=== PATIENT | male | born 1990 | race Caucasian/White ===

== ENCOUNTER 2022-11-10 17:53 | Emergency (ER) | payer OTHER, SELFPAY ==
[2022-11-10 17:59] VITALS: BP 121/93; BP 128/86; PULSE 111; PULSE 112; RESP 14; TEMP 36.8; O2SAT 82; O2SAT 95; BMI 31.5
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
--- NOTE | 2022-11-10 18:23 | PC.NURSE ---
pt unable to maintain 02 above 90 on 2l nc. ranging from 70-90, switched to oxymask at 4L. pt unable to stay awake. constant desat and unresponsiveness . MD Stone order for nasal narcan. administered to L nasal at this time. RR remains under 10
[2022-11-10] MEDS: Naloxone HCl Nasal 4 MG SPRAY NOSTRILALT (18:34)
--- OUTSIDE RECORDS SUMMARY | 2022-11-10 18:55 | XMS_ITS | Continuity of Care Document ---
Author Name Unknown Organization [facility] Address [address] [place] [address]- Care Team Providers Care Plasterer Helper Name Role Phone Marleny PARR, Gunnar Lopez Primary Care Physician Encounter [facility] Date(s): 05/11/21 - 06/10/21 [facility] [address] [place] [address]- Allergies, Adverse Reactions, Alerts No Known Allergies Immunizations Given and Recorded Vaccine Date Status Refusal Reason SARS-CoV-2 (COVID-19) mRNA BNT-162b2 vac 08/02/20 Recorded SARS-CoV-2 (COVID-19) mRNA BNT-162b2 vac 07/08/20 Recorded tetanus/diphtheria/pertussis, acel(Tdap) 05/24/20 Given Medications gabapentin 800 mg oral tablet 1 tablet = 800 mg, By Mouth, 4 times a day, Maintenance, 05/03/21 13:54:00 EST, Tablet, last [id number]/24 per [facility] Start Date: 05/03/21 Status: Ordered physical therapy for ankle fracture physical therapy for ankle fracture, See Instructions, # 1 each, Refills 0, Tot. Refills 0, Maintenance, physical therapy for ankle fracture, 05/10/21 16:25:00 EST, Supply Start Date: 05/10/21 Status: Ordered Protonix 40 mg oral delayed release tablet = 40 mg, By Mouth, Daily, 0 Refills, Maintenance, 05/10/21 17:05:00 EST, EC Tablet Start Date: 05/10/21 Status: Ordered rivaroxaban 10 mg oral tablet 1 tablet = 10 mg, By Mouth, Daily, # 12 tablet, 0 Refills, Maintenance, 05/07/21 17:30:00 EST, Tablet, Partial fill upon patient request if the prescription is for a schedule II opioid drug. Start Date: 05/07/21 Status: Ordered Walker See Instructions, # 1 each, Maintenance, for ankle fracture., 05/10/21 16:26:00 EST, for ankle fracture, Supply Start Date: 05/10/21 Status: Ordered Walker See Instructions, # 1 each, Maintenance, Non-weight bearing LLE, 05/06/21 15:26:00 EST, Supply Start Date: 05/06/21 Status: Ordered Problem List Condition Effective Dates Status Health Status Inform ant Borderline personality disorder(Confirmed) Active Hx of major depression(Confirmed) 1 Active Mood disorder(Confirmed) Active Nicotine dependence, uncomplicated(Confirmed) Active Obese class I(Confirmed) Active Opioid use disorder, severe, in early remission, dependence(Confirmed) Active 1hospitalized 2014 in a dual dx program (heroin dependence also) Social History Social History Type Response Tobacco Use: 2 1/2 - 3 PPD. Interested in cessation: No. No, Other: GIVES HIM NIGHTMARES. Sex Medical Equipment Implanted Date:05/04/21Target Site:Ankle Left Description Quantity MRI [employer] Model 5223-7392 9 HOLE LEFT LATERAL PLATE ACUMED 1 ACUMED Unknown SHYANNE:No Information Assigning Authority: FDA SCREW HEXALOBE LCKG 3.5X12 - ACUM (300234) 3 Acumed Unknown SHYANNE:No Information Assigning Authority: FDA SCREW HEXALOBE NONLCKG 3.5X12 - ACUM (300257) 5 Acumed Unknown SHYANNE:No Information Assigning Authority: FDA SCREW HEXALOBE NONLCKG 3.5X12 - ACUM (30-0257) 3 Acumed Unknown SHYANNE:No Information Assigning Authority: FDA SCREW HEXALOBE NONLCKG 3.5X14 - ACUM (30-0258) 2 Acumed Unknown SHYANNE:No Information Assigning Authority: FDA SCREW HEXALOBE NONLCKG 3.5X16 - ACUM (30-0259) 2 Acumed Unknown SHYANNE:No Information Assigning Authority: FDA 30-0326 screws 2.7x12mm locking Acumed 3 30-0326 screws 2.7x12mm locking Acumed Unknown SHYANNE:No Information Assigning Authority: FDA Implanted Date:05/04/21Target Site:Leg Left Description Quantity MRI [employer] Model 7561-1036S T2 TIBIAL NAIL LAURA [address] [place] Unknown SHYANNE:No Information Assigning Authority: FDA 2360-5050S SCREW LAURA 1 LAURA Unknown SHYANNE:No Information Assigning Authority: [facility] 2360-5060S SCREW LAURA 1 LAURA Unknown SHYANNE:No Information Assigning Authority: FDA Implanted Date:05/04/21Target Site:Leg Lower Description Quantity MRI Company Model 2360-5045S SCREW LAURA 1 236 0-5045S SCREW LAURA Unknown SHYANNE:No Information Assigning Authority: [facility] 2341-0005S END CAP LAURA 1 2 341-0005S END CAP LAURA Unknown SHYANNE:No Information Assigning Authority: [facility] 2360-5040S SCREW LAURA 1 LAURA Unknown SHYANNE:No Information Assigning Authority: [facility]
--- OUTSIDE RECORDS SUMMARY | 2022-11-10 18:55 | XMS_ITS | Continuity of Care Document ---
Author Name Unknown Organization [facility] Address [address] [place] [address]- Care Team Providers Care Exploration Engineer Name Role Phone Marleny PARR, Gunnar Lopez Primary Care Physician [phone] Encounter [facility] Date(s): 05/02/21 - 05/06/[address] [address]- Discharge Disposition: A-D/C AMA Attending Physician: Lyric Hanks MD Admitting Physician: Elizabeth Delgado MD Referring Physician: Harjinder Ferrari MD Allergies, Adverse Reactions, Alerts No Known Allergies Immunizations Given and Recorded Vaccine Date Status Refusal Reason SARS-CoV-2 (COVID-19) mRNA BNT-162b2 vac 08/02/20 Recorded SARS-CoV-2 (COVID-19) mRNA BNT-162b2 vac 07/08/20 Recorded tetanus/diphtheria/pertussis, acel(Tdap) 05/24/20 Given Medications gabapentin 400 mg oral capsule 800 mg, Capsule, By Mouth, 05/06/21 15:00:00 EST Start Date: 05/06/21 Stop Date: 05/06/21 Status: Completed gabapentin 800 mg oral tablet 1 tablet = 800 mg, By Mouth, 4 times a day, Maintenance, 05/03/21 13:54:00 EST, Tablet, last /24 per [facility] Start Date: 05/03/21 Status: Ordered HYDROmorphone Inj 2 mg, Injection, IV Push Slowly, Every 2 hours, PRN for Pain , Moderate, Routine, 05/04/21 8:55:00 EST Start Date: 05/04/21 Stop Date: 05/07/21 Status: Discontinued oxyCODONE 10 mg oral tablet 1 tablet = 10 mg, By Mouth, Every 4 hours, PRN as needed for pain, # 6 tablet, 0 Refills, Acute 05/08/21 0:01:00 EST, 05/06/21 14:54:00 EST, Tablet, [facility], Partial fill upon patient request if the prescription is for a schedule II... Start Date: 05/06/21 Stop Date: 05/08/21 Status: Ordered rivaroxaban 10 mg oral tablet 1 tablet = 10 mg, By Mouth, Daily at supper, # 7 tablet, 0 Refills, Maintenance, 05/07/21 9:00:00 EST, Tablet, [facility], 183, cm, 05/06/21 9:20:00 EST, Height, 100, kg, 05/03/21 0:26:00 EST, Dry Weight Start Date: 05/07/21 Status: Ordered Walker See [...] a dual dx program (heroin dependence also) Results Radiology Reports * Exam Date Time Procedure Performing Provider Status 05/02/21 7:44 PM Ankle Min 3 Views Left Mao Coughlin; Ana Rosa (Verified) Notes: (Ankle Min 3 Views Left) Reason For Exam: Pain RESULT: Ankle Min 3 Views Left Left lower leg 2 views and left ankle 2 views dated May 02, 2021. HISTORY: Pain. FINDINGS: This examination shows an obliquely oriented spiral fracture of the distal diaphysis of the tibia. The distal fracture fragment is displaced laterally approximately 40% of the shaft width. There is an obliquely oriented slightly spiral fracture of the distal fibular diaphysis at the diaphyseal metaphyseal junction. There is mild lateral displacement of a proximally 10% of the shaft width. No radiopaque foreign body or soft tissue gas is noted. IMPRESSION: Fractures of the distal tibia and fibula as described above. Examination [id number] and [id number]. Thank you for allowing me to participate in the care of this patient. WSN: [id number] Ordering Physician: Harjinder Ferrari Dictated By: London Nayak MD Dictated Date/Time: 05/02/21 7:48 pm Reviewed By: London Nayak MD Signed By: London Nayak MD Signed Date/Time: 05/02/21 7:48 pm Transcribed By: ANA MARIA Transcribed Date/Time: 05/02/21 7:48 pm * Exam Date Time Procedure Performing Provider Status 05/02/21 7:44 PM Tibia/Fibula 2 Views Left Ced , N icole L; Auth (Verified) Notes: (Tibia/Fibula 2 Views Left) Reason For Exam: Pain RESULT: Tibia/Fibula 2 Views Left Left lower leg 2 views and left ankle 2 views dated May 02, 2021. HISTORY: Pain. FINDINGS: This examination shows an obliquely oriented spiral fracture of the distal diaphysis of the tibia. The distal fracture fragment is displaced laterally approximately 40% of the shaft width. There is an obliquely oriented slightly spiral fracture of the distal fibular diaphysis at the diaphyseal metaphyseal junction. There is mild lateral displacement of a proximally 10% of the shaft width. No radiopaque foreign body or soft tissue gas is noted. IMPRESSION: Fractures of the distal tibia and fibula as described above. Examination [id number] and [id number]. Thank you for allowing me to participate in the care of this patient. WSN: [id number] Ordering Physician: Harjinder Ferrari Dictated By: London Nayak MD Dictated Date/Time: 05/02/21 7:48 pm Reviewed By: London Nayak MD Signed By: London Nayak MD Signed Date/Time: 05/02/21 7:48 pm Transcribed By: ANA MARIA Transcribed Date/Time: 05/02/21 7:48 pm Vital Signs Most recent to oldest [Reference Range]: 1 2 3 Height 183 cm (05/06/21 4:32 PM) 183 cm (05/06/21 8:59 AM) 183 cm (05/05/21 6:48 PM) Weight 103.1 kg (05/04/21 4:25 PM) 103.1 kg (05/03/21 12:05 AM) 100 kg (05/02/21 10:36 PM) Oxygen Saturation [94-100 %] 95 % (05/06/21 4:32 PM) 99 % (05/06/21 8:59 AM) 99 % (05/06/21 5:00 AM) Pulse Rate [55-90 bpm] 80 bpm (05/06/21 4:32 PM) 78 bpm (05/06/21 8:59 AM) 73 bpm (05/06/21 5:00 AM) Body Mass Index [18.5-24.99] 30.79 *>HHI* (05/04/21 4:25 PM) 30.79 *>HHI* (05/03/21 12:05 AM) 29.86 *H* (05/02/21 10:36 PM) Blood Pressure [90-138/55-84 mm Hg] 130/85mm Hg (05/06/21 4:32 PM) 134/81mm Hg (05/06/21 8:59 AM) 119/77mm Hg (05/06/21 5:00 AM) Respiratory Rate [16-30 br/min] 17 br/min (05/06/21 4:32 PM) 16 br/min (05/06/21 3:15 PM) 18 br/min (05/06/21 2:45 PM) Temperature [96.8-100.4 DegF] 97.6 DegF (05/06/21 4:32 PM) 98.1 DegF (05/06/21 8:59 AM) 98.6 DegF (05/06/21 5:00 AM) Liters per Minute 0 L/min (05/06/21 5:00 AM) 0 L/min (05/06/21 12:00 AM) 0 L/min (05/05/21 8:00 PM) Mode of Delivery (Oxygen) Room air (05/06/21 4:32 PM) Room air (05/06/21 8:59 AM) Room air (05/06/21 5:00 AM) Blood pressure sites Arm, left (05/06/21 8:59 AM) Arm, right (05/05/21 6:48 PM) Arm, right (05/05/21 2:51 PM) Temperature Route Oral (05/06/21 4:32 PM) Oral (05/06/21 8:59 AM) Oral (05/06/21 5:00 AM) Dry Weight 100 kg (05/03/21 12:05 AM) 100 kg (05/02/21 10:36 PM) 100 kg (05/02/21 8:18 PM) Weight Obtained Via Bed scale (05/03/21 12:05 AM) Dry Weight Obtained Via Patient/family s tated (05/03/21 12:05 AM) Medical Equipment Implanted Date:05/04/21Target Site:Ankle Left Description Quantity MRI [employer] Model 1969-4925 9 HOLE LEFT LATERA L PLATE ACUMED 1 ACUMED Unknown SHYANNE:No Information Assigning Authority: FDA SCREW HEXALOBE LCKG 3.5X12 - ACUM (300234) 3 Acumed Unknown SHYANNE:No Information Assigning Authority: FDA SCREW HEXALOBE NONLCKG 3.5X1 2 - ACUM (300257) 2 Acumed Unknown SHYANNE:No Information Assigning Authority: FDA SCREW HEXALOBE NONLCKG 3.5X1 2 - ACUM (300257) 3 Acumed Unknown SHYANNE:No Information Assigning Authority: FDA SCREW HEXALOBE NONLCKG 3.5X1 4 - ACUM (300258) 2 Acumed Unknown SHYANNE:No Information Assigning Authority: FDA SCREW HEXALOBE NONLCKG 3.5X1 6 - ACUM (300259) 2 Acumed Unknown SHYANNE:No Information Assigning Authority: FDA Implanted Date:[facility]04/21[facility] Site:Leg Left Description Quantity MRI [employer] IQ Model 8671-1036S T2 TIBIAL NAIL LAURA [address] [place] Unknown SHYANNE:No Information Assigning Authority: FDA 2360-5050S SCREW LAURA 1 LAURA Unknown SHYANNE:No Information Assigning Authority: FDA 2360-5060S SCREW LAURA 1 LAURA Unknown SHYANNE:No Information Assigning Authority: FDA Implanted Date:05/04/21Target Site:Leg Lower Description Quantity MRI [employer] IQ Model 2360-5045S SCREW LAURA 1 236 0-5045S SCREW LAURA Unknown SHYANNE:No Information Assigning Authority: FDA 2341-0005S END CAP LAURA 1 2 341-0005S END CAP LAURA Unknown SHYANNE:No Information Assigning Authority: FDA 2360-5040S SCREW LAURA 1 LAURA Unknown SHYANNE:No Information Assigning Authority: FDA
--- OUTSIDE RECORDS SUMMARY | 2022-11-10 18:55 | XMS_ITS | Continuity of Care Document ---
Author Name Unknown Organization [facility] Address [address] [place] [address]- Care Team Providers Care Crop Specialist Name Role Phone Marleny PARR, Gunnar Lopez Primary Care Physician Encounter [facility] N[facility] [id number] Date(s): 06/18/21 - 08/15/21 [facility] [address] [place] [address]- Attending Physician: Estevan Crystal MD Allergies, Adverse Reactions, Alerts No Known Allergies Immunizations Given and Recorded Vaccine Date Status Refusal Reason SARS-CoV-2 (COVID-19) mRNA BNT-162b2 vac 08/02/20 Recorded SARS-CoV-2 (COVID-19) mRNA BNT-162b2 vac 07/08/20 Recorded tetanus/diphtheria/pertussis, acel(Tdap) 05/24/20 Given Medications gabapentin 800 mg oral tablet 1 tablet = 800 mg, By Mouth, 4 times a day, Maintenance, 05/03/21 13:54:00 EST, Tablet, last qfojts66/24 per [facility] Start Date: 05/03/21 Status: Ordered [...] EC Tablet Start Date: 05/10/21 Status: Ordered Walker See [...] Implanted Date:05/04/21Target Site:Ankle Left Description Quantity MRI [employer] Model 7939-4918 9 HOLE LEFT LATERAL PLATE ACUMED 1 ACUMED Unknown SHYANNE:No Information Assigning Authority: FDA SCREW HEXALOBE LCKG 3.5X12 - ACUM (300234) 3 Acumed Unknown SHYANNE:No Information Assigning Authority: FDA SCREW HEXALOBE NONLCKG 3.5X12 - ACUM (30-0257) 5 Acumed Unknown SHYANNE:No Information Assigning Authority: [...] FDA Implanted Date:05/04/21Target Site:Leg Left Description Quantity [employer] Model 2341-1036S T2 TIBIAL NAIL LAURA [address] [place] Unknown SHYANNE:No Information Assigning Authority: FDA 2360-5050S SCREW LAURA 1 LAURA Unknown SHYANNE:No Information Assigning Authority: FDA 2360-5060S SCREW LAURA 1 LAURA Unknown SHYANNE:No Information Assigning Authority: FDA Implanted Date:05/04/21Target Site:Leg Lower Description Quantity MRI Company Model 2360-5045S SCREW LAURA 1 236 0-5045S SCREW LAURA Unknown SHYANNE:No Information Assigning Authority: [facility] 2341-0005S END CAP LAURA 1 2 341-0005S END CAP LAURA Unknown SHYANNE:No Information Assigning Authority: [facility] 2360-5040S SCREW LAURA 1 LAURA Unknown SHYANNE:No Information Assigning Authority: [facility]
--- OUTSIDE RECORDS SUMMARY | 2022-11-10 18:55 | XMS_ITS | Continuity of Care Document ---
Author Name Unknown Organization [facility] Address [address] [place] [address]- Care Team Providers Care Fruit Vendor Name Role Phone Marleny PARR, Gunnar Lopez Primary Care Physician Encounter [facility] Date(s): 07/04/21 - 08/08/21 [facility] [address] [place] [address]- Attending Physician: Estevan Crystal MD Allergies, Adverse Reactions, Alerts No Known Allergies Immunizations Given and Recorded Vaccine Date Status Refusal Reason SARS-CoV-2 (COVID-19) mRNA BNT-162b2 vac 08/02/20 Recorded SARS-CoV-2 (COVID-19) mRNA BNT-162b2 vac 07/08/20 Recorded tetanus/diphtheria/pertussis, acel(Tdap) 05/24/20 Given Medications gabapentin 800 mg oral tablet 1 tablet = 800 mg, By Mouth, 4 times a day, Maintenance, 05/03/21 13:54:00 EST, Tablet, last dnoysp47/24 per [facility] Start Date: 05/03/21 Status: Ordered [...] Equipment Implanted Date:05/04/21Target Site:Ankle Left Description Quantity [employer] Model 5255-2326 9 HOLE LEFT LATERAL PLATE ACUMED 1 [...] FDA SCREW HEXALOBE NONLCKG 3.5X16 - ACUM (300259) 2 Acumed Unknown SHYANNE:No Information Assigning Authority: FDA 30-0326 screws 2.7x12mm locking Acumed 3 30-0326 screws 2.7x12mm locking Acumed Unknown SHYANNE:No Information Assigning Authority: FDA Implanted Date:05/04/21Target Site:Leg Left Description Quantity [employer] Model 2341-1036S T2 TIBIAL NAIL LAURA [address] [place] Unknown SHYANNE:No Information Assigning Authority: FDA 2360-5050S SCREW LAURA 1 LAURA Unknown SHYANNE:No Information Assigning Authority: FDA 2360-5060S SCREW LAURA 1 LARUA Unknown SHYANNE:No Information Assigning Authority: FDA Implanted Date:05/04/21Target Site:Leg Lower Description Quantity MRI Company Model 2360-5045S SCREW LAURA 1 236 0-5045S SCREW LAURA Unknown SHYANNE:No Information Assigning Authority: [facility] 2341-0005S END CAP LAURA 1 2 341-0005S END CAP LAURA Unknown SHYANNE:No Information Assigning Authority: [facility] 2360-5040S SCREW LAURA 1 LAURA Unknown SHYANNE:No Information Assigning Authority: [facility]
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
--- OUTSIDE RECORDS SUMMARY | 2022-11-10 18:55 | XMS_ITS | Continuity of Care Document ---
[facility] Address [address] [place] [address]- Care Team Providers Care Cop Winder Name Role Phone Marleny PARR, Gunnar Lopez Primary Care Physician [phone] Encounter [facility] Date(s): 05/07/21 - 05/10/[address] [address]- Discharge Disposition: A-D/C Home Attending Physician: Lucero Calle MD Admitting Physician: Lyric Hanks MD Referring Physician: Not on Staff, Referring MD Allergies, Adverse Reactions, Alerts No Known Allergies Immunizations Given and Recorded Vaccine Date Status Refusal Reason SARS-CoV-2 (COVID-19) mRNA BNT-162b2 vac 08/02/20 Recorded SARS-CoV-2 (COVID-19) mRNA BNT-162b2 vac 07/08/20 Recorded tetanus/diphtheria/pertussis, acel(Tdap) 05/24/20 Given Medications cephalexin monohydrate 500 mg oral capsule 1 capsule = 500 mg, By Mouth, 4 times a day, for 7 days, # 28 capsule, 0 Refills, Acute 05/17/21 16:43:00 EST, 05/10/21 16:43:00 EST, Capsule, [facility], Partial fill upon patientrequest if the prescription is for a schedule II opioid... Start Date: 05/10/21 Stop Date: 05/17/21 Status: Ordered gabapentin 400 mg oral capsule 800 mg, Capsule, By Mouth, 05/10/21 17:00:00 EST Start Date: 05/10/21 Stop Date: 05/10/21 Status: Completed gabapentin 800 mg oral tablet 1 tablet = 800 mg, By Mouth, 4 times a day, Maintenance, 05/03/21 13:54:00 EST, Tablet, last oqxief46/24 per [facility] Start Date: 05/03/21 Status: Ordered oxyCODONE 10 mg oral tablet 1 tablet = 10 mg, By Mouth, Every 4 hours, PRN as needed for pain, for 2 days, # 12 tablet, 0 Refills, Acute 05/12/21 16:34:00 EST, 05/10/21 16:34:00 EST, Tablet, [facility], Partial fill upon patient request if the prescription is for... Start Date: 05/10/21 Stop Date: 05/12/21 Status: Ordered oxyCODONE 10 mg oral tablet 1 tablet = 10 mg, By Mouth, Every 4 hours, PRN as needed for pain, for 2 days, # 12 tablet, 0 Refills, Acute 05/14/21 16:55:00 EST, 05/12/21 16:55:00 EST, Tablet, [facility], Partial fill upon patient request if the prescription is for... Start Date: 05/12/21 Stop Date: 05/14/21 Status: Ordered oxyCODONE 5 mg oral tablet 10 mg, Tablet, By Mouth, Every 4 hours, PRN for Pain , Moderate, Routine, 05/08/21 9:00:00 EST Start Date: 05/08/21 Stop Date: 05/11/21 Status: Discontinued physical therapy for ankle fracture physical therapy [...] a dual dx program (heroin dependence also) Vital Signs Most recent to oldest [Reference Range]: 1 2 3 Height 182 cm (05/10/21 9:04 AM) 182 cm (05/09/21 4:32 PM) 182 cm (05/08/21 12:14 PM) Weight 102 kg (05/08/21 12:14 PM) 102 kg (05/08/21 10:06 AM) 102 kg (05/08/21 7:43 AM) Oxygen Saturation [94-100 %] 99 % (05/10/21 1:00 PM) 98 % (05/10/21 9:04 AM) 97 % (05/10/21 6:00 AM) Pulse Rate [55-90 bpm] 68 bpm (05/10/21 1:00 PM) 72 bpm (05/10/21 9:04 AM) 79 bpm (05/10/21 6:00 AM) Body Mass Index [18.5-24.99] 30.79 *>HHI* (05/08/21 12:14 PM) 30.79 *>HHI* (05/08/21 10:06 AM) 30.79 *>HHI* (05/08/21 7:43 AM) Blood Pressure [90-138/55-84 mm Hg] 120/68mm Hg (05/10/21 1:00 PM) 118/54mm Hg (05/10/21 9:04 AM) 119/72mm Hg (05/10/21 6:00 AM) Respiratory Rate [16-30 br/min] 16 br/min (05/10/21 5:55 PM) 18 br/min (05/10/21 5:04 PM) 16 br/min (05/10/21 4:55 PM) Temperature [96.8-100.4 DegF] 97.4 DegF (05/10/21 1:00 PM) 97.8 DegF (05/10/21 9:04 AM) 98.1 DegF (05/10/21 6:00 AM) Liters per Minute 0 L/min (05/09/21 4:32 PM) 0 L/min (05/08/21 6:11 AM) 0 L/min (05/08/21 1:18 AM) Mode of Delivery (Oxygen) Room air (05/10/21 1:00 PM) Room air (05/10/21 9:04 AM) Room air (05/10/21 6:00 AM) Blood pressure sites Arm, right (05/10/21 1:00 PM) Arm, right (05/10/21 9:04 AM) Arm, right (05/10/21 6:00 AM) Temperature Route Temporal (05/10/21 1:00 PM) Temporal (05/10/21 9:04 AM) Temporal (05/10/21 6:00 AM) Dry Weight 102 kg (05/08/21 12:14 PM) 102 kg (05/08/21 10:06 AM) 102 kg (05/08/21 7:43 AM) Weight Obtained Via Patient/family state d (05/07/21 11:55 AM) Dry Weight Obtained Via Patient/family s tated (05/07/21 11:55 AM) Social History Social History Type Response Tobacco Use: 2 1/2 - 3 PPD. Interested in cessation: No. No, Other: GIVES HIM NIGHTMARES. Sex Medical Equipment Implanted Date:05/04/21Target Site:Ankle Left Description Quantity [employer] Model 7976-6802 9 HOLE LEFT LATERAL PLATE ACUMED 1 ACUMED Unknown SHYANNE:No Information Assigning Authority: FDA SCREW HEXALOBE LCKG 3.5X12 - ACUM ([id number]) 3 Acumed Unknown SHYANNE:No Information Assigning Authority: FDA SCREW HEXALOBE NONLCKG 3.5X12 - ACUM ([id number]) 5 Acumed Unknown SHYANNE:No Information Assigning Authority: FDA SCREW HEXALOBE NONLCKG 3.5X12 - ACUM ([id number]) 3 Acumed Unknown SHYANNE:No Information Assigning Authority: FDA SCREW HEXALOBE NONLCKG 3.5X14 - ACUM ([id number]) 2 Acumed Unknown SHYANNE:No Information Assigning Authority: FDA SCREW HEXALOBE NONLCKG 3.5X16 - ACUM ([id number]) 2 Acumed Unknown SHYANNE:No Information Assigning Authority: FDA 30-0326 screws 2.7x12mm locking Acumed 3 30-0326 screws 2.7x12mm locking Acumed Unknown SHYANNE:No Information Assigning Authority: FDA Implanted Date:05/04/21[facility] Site:Leg Left Description Quantity MRI Company Model 2341-1036S T2 TIBIAL NAIL LAURA [address] [place] Unknown SHYANNE:No Information Assigning Authority: [facility] 2360-5050S SCREW LAURA 1 LAURA Unknown SHYANNE:No Information Assigning Authority: FDA [id number] SCREW LAURA 1 LAURA Unknown SHYANNE:No Information Assigning Authority: FDA Implanted Date:05/04/21[facility] Site:Leg Lower Description Quantity MRI Company Model 2360-5045S SCREW LAURA 1 236 0-5045S SCREW LAURA Unknown SHYANNE:No Information Assigning Authority: [facility] 2341-0005S END CAP LAURA 1 2 341-0005S END CAP LAURA Unknown SHYANNE:No Information Assigning Authority: [facility] 2360-5040S SCREW LAURA 1 LAURA Unknown SHYANNE:No Information Assigning Authority: [facility]
--- OUTSIDE RECORDS SUMMARY | 2022-11-10 18:55 | XMS_ITS | Continuity of Care Document ---
Author Name Unknown Address [address] [place] [address] Phone [facility] Address [address] [place] [address] Phone Care Team Providers Care Receiving Teller Name Role Phone MD Gunnar Farmer Primary Care Provider MD Kristie Houston Emergency Provider Chief Complaint and Reason for Visit Chief Complaint chest pain x4 hours Allergies, Adverse Reactions, Alerts No known allergies Social History Smoking Status Unknown if ever smoked Additional Data Assigned Sex Male Procedures Procedure Date Performed Status XR chest 1V October 22, 2022 2:29am active Relevant Diagnostic Tests and/or Laboratory Data Laboratory Results Test Date/Time Result Interpretation Reference Range Result Comment Performing Site White Blood Count October 22, 2022 2:16am 9.9 X10 3/uL 4.5-11.0 [facility] [id number] [address] [place] [address]000 Red Blood Count October 22, 2022 2:16am 5.32 X10 6/uL 4.00-5.50 [facility] [id number] [address] [place] [address] Hemoglobin October 22, 2022 2:16am 17.1 g/dl 13.0-17.0 [facility] [id number] [address] [place] [address] Hematocrit October 22, 2022 2:16am 48.6 % 37.5-50.0 [facility] [id number] [address] [place] [address] 034[address] Mean Corpuscular Volume October 22, 2022 2:16am 91.4 fl 80.0-100.0 [facility] [id number] [address] [place] [address] 22289 Mean Corpuscular Hemoglobin October 22, 2022 2:16am 32.1 pg 27.0-34.0 [facility] [id number] [address] [place] [address] 62456 Mean Corpuscular Hemoglobin Concent October 22, 2022 2:16am 35.2 g/dl 31.0-36.0 [facility] [id number] [address] [place] [address] 784[address] Red Cell Distribution Width October 22, 2022 2:16am 13.2 % 11.5-15.0 [facility] [id number] [address] [place] [address] 732[address] Platelet Count October 22, 2022 2:16am 276 X10 3/uL 150-400 [facility] [id number] [address] [place] [address]96[address] Immature Granulocyte % (Auto) October 22, 2022 2:16am 0.4 % [facility] [id number] [address] [place] [address] 6[address] Neutrophils (%) (Auto) October 22, 2022 2:16am 59.6 % [facility] [id number] [address] [place] [address] 05688 Lymphocytes (%) (Auto) October 22, 2022 2:16am 28.2 % [facility] [id number] [address] [place] [address] 11815 Monocytes (%) (Auto) October 22, 2022 2:16am 9.8 % [facility] [id number] [address] [place] [address] 09673 Eosinophils (%) (Auto) October 22, 2022 2:16am 1.4 % [facility] [id number] [address] [place] [address] 725[address] Basophils (%) (Auto) October 22, 2022 2:16am 0.6 % [facility] [id number] [address] [place] [address] 74[address] Immature Granulocyte # (Auto) October 22, 2022 2:16am 0.04 X10 3/uL 0.00-0.09 [facility] [id number] [address] [place] [address] 92431 Neutrophils # (Auto) October 22, 2022 2:16am 5.9 X10 3/uL 1.5-7.8 [facility] [id number] [address] [place] [address] 560[address] Lymphocytes # (Auto) October 22, 2022 2:16am 2.8 X10 3/uL 1.0-4.8 [facility] [id number] [address] [place] [address] 57423 Monocytes # (Auto) October 22, 2022 2:16am 1.0 X10 3/uL 0.0-0.8 [facility] [id number] [address] [place] [address] 51449 Eosinophils # (Auto) October 22, 2022 2:16am 0.1 X10 3/uL 0.0-0.5 [facility] [id number] [address] [place] [address] 20681 Basophils # (Auto) October 22, 2022 2:16am 0.1 X10 3/uL 0.0-0.2 [facility] [id number] [address] [place] [address] Nucleated Red Blood Cells % October 22, 2022 2:16am 0.0 /100 WBC 0.0-0.0 [facility] [id number] [address] [place] [address] Prothrombin Time October 22, 2022 2:38am 10.9 Seconds 9.3-12.1 [facility] [id number] [address] [place] [address] Prothromb Time International Ratio October 22, 2022 2:38am 1.0 0.9-1.2 Reference Interval is for non-anticoagul ated patients.Sugge sted INR Therapeutic Range for Vitamin K antogonist therapy:LEVELS OF THERAPY INDICATIONS TARGET INR RANGEStandard Dose Venous Thrombosis, 2.0 - 3.0 Atrial Fibrillation, Pulmonary Embolism. High Dose Valvular Heart Disease, 2.5 - 3.5 Mechanical Heart, Intracardiac Thrombosis. [facility] [id number] [address] [place] [address] Activated Partial Thromboplast Time October 22, 2022 2:38am 26.5 Seconds 23.9-32.8 [facility] [id number] [address] [place] [address] D-Dimer, Quantitative October 22, 2022 2:38am < 0.19 ug/mlFEU <0.49 The D-Dimer is intended for use in conjunction with clinical pretest probability (PTP) assessment model to exclude pulmonary embolism (PE) and deep venous thrombosis (DVT) in outpatients presenting to the emergency or ambulatory department with suspected PE or DVT.The cut off value is 0.50 ug/mL FEUResults of this test should always be interpreted in conjunction with the patient? s medical history, clinical presentation and other findings. DVT clinical diagnosis should not be based on the result of the D-Dimer alone. [facility] [id number] [address] [place] [address] Sodium Level October 22, 2022 2:16am 136 mmol/L 137-146 [facility] [id number] [address] [place] [address] Potassium Level October 22, 2022 2:16am 3.9 mmol/L 3.5-5.3 [facility] [id number] [address] [place] [address] Chloride Level October 22, 2022 2:16am 101 mmol/L 98-107 [facility] [id number] [address] [place] [address] Carbon Dioxide Level October 22, 2022 2:16am 20 mmol/L 23-32 [facility] [id number] [address] [place], [place] [address] Anion Gap October 22, 2022 2:16am 15 mmol/L 5-15 [facility] [id number] [address] [place] [address] Blood Urea Nitrogen October 22, 2022 2:16am 8 mg/dl 5-25 [facility] [id number] [address] [place] [address] Creatinine October 22, 2022 2:16am 0.9 mg/dL 0.6-1.4 [facility] [id number] [address] [place] [address] Estimated Creatinine Clearance October 22, 2022 2:16am 150.8 ml/min This value is calculated by Cockcroft Gault Equation using ideal body weight. This result is dependent on an accurate patient height and weight which is obtained from patients medical record. Cockcroft, D.W. and Mariah Escudero. Prediction of creatinine clearance from serum creatinine. Nephron. 1976. 16(1):31-41. [facility] [id number] [address] [place] [address] 889[address] Estimat Glomerular Filtration Rate October 22, 2022 2:16am 117 >90 Reported eGFR is based on the CKD-EPI 2020 equation that does not use a race coefficient. Additional information can be found at:[id number]_ [email or web address] ([email or web address]) [facility] [id number] [address] [place], [place] [address] BUN/Creatinine Ratio October 22, 2022 2:16am 8.9 10.0-20.0 [facility] [id number] [address] [place], [place] [address] Glucose Level October 22, 2022 2:16am 112 mg/dL 70-100 [facility] [id number] [address] [place], [place] [address] Calcium Level October 22, 2022 2:16am 9.0 mg/dl 8.6-10.3 [facility] [id number] [address] [place] [address] 86188 Total Bilirubin October 22, 2022 2:16am 0.7 mg/dl <1.1 [facility] [id number] [address] [place], [place] [address] Aspartate Amino Transf (AST/SGOT) October 22, 2022 2:16am 101 U/L 15-41 [facility] [id number] [address] [place] [address] 87124 Alanine Aminotransferase (ALT/SGPT) October 22, 2022 2:16am 152 U/L 14-63 [facility] [id number] [address] [place] [address] 25862 Total Protein October 22, 2022 2:16am 7.0 g/dL 6.4-8.3 [facility] [id number] [address] [place] [address] 35265 Albumin October 22, 2022 2:16am 4.8 g/dl 4.0-5.0 [facility] [id number] [address] [place] [address] 94738 Albumin/Globulin Ratio October 22, 2022 2:16am 2.2 1.0-2.6 [facility] [id number] [address] [facility] Alkaline Phosphatase October 22, 2022 2:16am 74 U/L 40-129 [facility] [id number] [address] [facility] Vital Signs Vital Reading Result Reference Range Collection Date/Time Height 185.42 cm October 22, 2022 2:12am Weight 104.32 kg October 22, 2022 2:12am Body Temperature 97.9 [degF] 97.6-99.6 October 22, 2 023 2:12am Heart Rate 124 /min 60-90 October 22, 2022 2:12am Respiratory rate 22 /min 12-October 22, 2 023 2:12am Oxygen saturation by Pulse oximetry 99 % 95-10 0 October 22, 2022 2:12am BP Systolic 145 mm[Hg] 90-140 October 22, 2022 2:12am BP Diastolic 99 mm[Hg] 60-90 October 22, 2022 2:12am BMI (Body Mass Index) 30.3 kg/m2 October 222022 2:12am Advance Directives Advance Directive Response Recorded Date/ Time Advance Directives No October 22 2:50am Health Care Proxy No October 22, 2022 2:50am Insurance Providers Guarantor Valeriano Nunez Address [address] [place] [address] Contact Info. Home Phone: Payer Policy Id Coverage Id Subscriber's Name Subscriber Id Effective Date Expiration Date [facility] (Medicaid) [id number] [facility] Medicaid [id number] Valeriano Nunez [id number] Encounters Encounter Location(s) Arrival/Admit Date Discharge/Depart Date Provider(s) Departed Emergency [facility] October 22, 2022 1:45am October 22, 2022 3:42am null Plan of Treatment Future Tests Future scheduled test information is unavailable Pending Tests Test Name Ordered Date Scheduled Date VS-Nuv-T-Type Natriuretic Peptide October 22, 2022 2:16am XR chest 1V October 22, 2022 2:29am October 22, 2022 2:29am Future Visits Future appointment information is unavailable Referrals to Other Providers Reason for Referral Referral Start Date Provider Provider Contact Information Provider Address Gunnar Thomason Phone: [address] [place] [phone] Future Procedures Future procedure information is unavailable Future Medications Future medication information is unavailable Patient Instructions Patient instructions are unavailable
--- OUTSIDE RECORDS SUMMARY | 2022-11-10 18:55 | XMS_ITS | Continuity of Care Document ---
Author Name Unknown Organization [facility] Address [address] [place] [address]- Care Team Providers Care Cnc Mill And Lathe Operator Name Role Phone Marleny PARR, Gunnar Lopez Primary Care Physician Encounter [facility] Date(s): 05/06/21 - 06/05/[address] [address] Attending Physician: Not on Staff, Attending MD Admitting Physician: Not on Staff, Admitting MD Referring Physician: Not on Staff, Referring [...] day, Maintenance, 05/03/21 13:54:00 EST, Tablet, last roowxk75/24 per [facility] Start Date: 05/03/21 Status: Ordered [...] Implanted Date:05/04/21Target Site:Ankle Left Description Quantity MRI [employer] Model [id number] 9 HOLE LEFT LATERAL PLATE ACUMED 1 ACUMED Unknown SHYANNE:No Information Assigning Authority: FDA SCREW HEXALOBE LCKG 3.5X12 - ACUM ([id number]) 3 Acumed Unknown SHYANNE:No Information Assigning Authority: FDA SCREW HEXALOBE NONLCKG 3.5X12 - ACUM ([id number]) 5 Acumed Unknown SHYANNE:No Information Assigning Authority: FDA SCREW HEXALOBE NONLCKG 3.5X12 - ACUM ([id number]) 3 Acumed Unknown SHYANNE:No [...] Implanted Date:05/04/21Target Site:Leg Left Description Quantity MRI Company Model [...] SCREW LAURA Unknown SHYANNE:No Information Assigning Authority: [facility] 2341-0005S END CAP LAURA 1 2 341-0005S END CAP LAURA Unknown SHYANNE:No Information Assigning Authority: FDA 2360-5040S SCREW LAURA 1 LAURA Unknown SHYANNE:No Information Assigning Authority: [facility]
--- OUTSIDE RECORDS SUMMARY | 2022-11-10 18:55 | XMS_ITS | Continuity of Care Document ---
Author [facility] Address [address] [place] [address]- Care Team Providers Care Aircraft Electrical Systems Specialist Name Role Phone Gunnar Farmer MD Primary Care Physician Encounter [facility] Date(s): 05/23/20 - 05/23/[address] [address]- Discharge Disposition: A-D/C Home Attending Physician: Dale Garcia MD Admitting Physician: Dale Garcia MD Referring Physician: Not on Staff, Referring MD Allergies, Adverse Reactions, Alerts Substance Reaction Severity Status NKA Active Medications Bactrim DS 800 mg-160 mg oral tablet 1 tablet, By Mouth, 2 times a day, for 10 days, # 20 tablet, 0 Refills, Acute 06/02/20 14:48:00 EST, 05/23/20 14:48:00 EST, Tablet, [facility], Partial fill upon patient request ifthe prescription is for a schedule II opioid drug., 1 t... Start Date: 05/23/20 Stop Date: 06/02/20 Status: Ordered Keflex monohydrate 500 mg oral capsule 1 capsule = 500 mg, By Mouth, 4 times a day, for 10 days, # 40 capsule, 0 Refills, Acute 06/02/20 14:48:00 EST, 05/23/20 14:48:00 EST, Capsule, [facility], Partial fill upon patient request if the prescription is for a schedule II opioi... Start Date: 05/23/20 Stop Date: 06/02/20 Status: Ordered mupirocin 2% topical ointment 1 application, Topically, [...] disorder, severe, in early remission, dependence(Confirmed) Active Vital Signs Most recent to oldest [Reference Range]: 1 2 3 Height 185 cm (05/23/20 4:37 PM) 185 cm (05/23/20 4:00 PM) 185 cm (05/23/20 2:02 PM) Weight 102.2 kg (05/23/20 4:37 PM) 102.2 kg (05/23/20 4:00 PM) 102.2 kg (05/23/20 2:02 PM) Oxygen Saturation [94-100 %] 98 % (05/23/20 4:37 PM) 100 % (05/23/20 4:00 PM) 99 % (05/23/20 2:02 PM) Pulse Rate [55-90 bpm] 90 bpm (05/23/20 4:37 PM) 86 bpm (05/23/20 4:00 PM) 93 bpm *H* (05/23/20 2:02 PM) Body Mass Index [18.5-24.99] 29.86 *H* (05/23/20 4:37 PM) 29.86 *H* (05/23/20 4:00 PM) 29.86 *H* (05/23/20 2:02 PM) Blood Pressure [90-138/55-84 mm Hg] 136/83mm Hg (05/23/20 4:37 PM) 141/86mm Hg *H* (05/23/20 4:00 PM) 148/86mm Hg *H* (05/23/20 2:02 PM) Respiratory Rate [16-30 br/min] 18 br/min (05/23/20 4:37 PM) 18 br/min (05/23/20 4:00 PM) 17 br/min (05/23/20 2:02 PM) Temperature [96.8-100.4 DegF] 98.1 DegF (05/23/20 4:00 PM) 98.4 DegF (05/23/20 2:02 PM) 95.8 DegF *L* (05/23/20 12:37 PM) Mode of Delivery (Oxygen) Room air (05/23/20 4:37 PM) Room air (05/23/20 4:00 PM) Room air (05/23/20 12:37 PM) Blood pressure sites Arm, right (05/23/20 4:37 PM) Arm, right (05/23/20 4:00 PM) Arm, left (05/23/20 12:37 PM) Temperature Route Oral (05/23/20 4:00 PM) Oral (05/23/20 2:02 PM) Tympanic (05/23/20 12:37 PM) Dry Weight 102.2 kg (05/23/20 4:37 PM) 102.2 kg (05/23/20 4:00 PM) 102.2 kg (05/23/20 2:02 PM) Social History Social History Type Response Smoking Status 10 or more cigarette s (1/2 pack or more)/day in last 30 days entered on: 01/10/19 Sex
--- OUTSIDE RECORDS SUMMARY | 2022-11-10 18:55 | XMS_ITS | Continuity of Care Document ---
Author Name Unknown Organization [facility] Address [address] [place] [address]- Care Team Providers Care Dry Color Tester Name Role Phone Marleny PARR, Gunnar Lopez Primary Care Physician Encounter [facility] Date(s): 07/16/21 - 08/15/21 [facility] [address] [place] [address]- Attending Physician: Deshaun Godinez Admitting Physician: Admtr ArLaura Referring Physician: Admtr, Ar8 Allergies, Adverse Reactions, Alerts No Known Allergies Immunizations Given and Recorded Vaccine Date Status Refusal Reason SARS-CoV-2 (COVID-19) mRNA BNT-162b2 vac 08/02/20 Recorded SARS-CoV-2 (COVID-19) mRNA BNT-162b2 vac 07/08/20 Recorded tetanus/diphtheria/pertussis, acel(Tdap) 05/24/20 Given Medications gabapentin 800 mg oral tablet 1 tablet = 800 mg, By Mouth, 4 times a day, Maintenance, 05/03/21 13:54:00 EST, Tablet, last slijgy51/24 per [facility] Start Date: 05/03/21 Status: Ordered [...] Implanted Date:05/04/21Target Site:Ankle Left Description Quantity MRI [employer] Model 6593-3239 9 HOLE LEFT LATERAL PLATE ACUMED 1 [...] FDA SCREW HEXALOBE NONLCKG 3.5X14 - ACUM (300258) 2 Acumed Unknown SHYANNE:No Information Assigning Authority: FDA SCREW HEXALOBE NONLCKG 3.5X16 - ACUM (300259) 2 Acumed Unknown SHYANNE:No Information Assigning Authority: FDA 30-0326 screws 2.7x12mm locking Acumed 3 30-0326 screws 2.7x12mm locking Acumed Unknown SHYANNE:No Information Assigning Authority: FDA Implanted Date:05/04/21Target Site:Leg Left Description Quantity MRI [employer] Model 2341-1036S T2 TIBIAL NAIL LAURA [address] [employer] Unknown SHYANNE:No Information Assigning Authority: FDA 2360-5050S SCREW LAURA 1 LAURA Unknown SHYANNE:No Information Assigning Authority: FDA 2360-5060S SCREW LAURA 1 LAURA Unknown SHYANNE:No Information Assigning Authority: FDA Implanted Date:05/04/21Target Site:Leg Lower Description Quantity MRI Company Model 2360-5045S SCREW LAURA 1 236 0-5045S SCREW LAURA Unknown SHYANNE:No Information Assigning Authority: [facility] 2341-0005S END CAP LAURA 1 2 341-0005S END CAP LAURA Unknown SHYANNE:No Information Assigning Authority: [facility] 2360-5040S SCREW LAURA 1 LAURA Unknown SHYANNE:No Information Assigning Authority: [facility]
[2022-11-10] MEDS: Naloxone HCl Nasal TAKE HOME 4 MG SPRAY 8 MG NOSTRILALT (19:43)
== END 2022-11-10 20:01 | disposition home or self-care (01) ==
PROVIDERS: Emergency Provider Emergency Medicine
DX: R40.4 Transient alteration of awareness (principal); T50.901A Poisoning by unspecified drugs, medicaments and biological substances, accidental (unintentional), initial encounter; F19.10 Other psychoactive substance abuse, uncomplicated; Y92.9 Unspecified place or not applicable
CPT/HCPCS: 99284